=== PATIENT | male | born 1950 | race Caucasian/White ===

== ENCOUNTER → 2018-07-09 | Outpatient (CLI) | payer OTHER ==
[~2018-07-09] MED LIST: IOPAMIDOL (ISOVUE-300) 100 ML BTL ONE
== END ==
LOC: CIMAGING 08:20
PROVIDERS: ATTEND Urology
DX: N20.0 Calculus of kidney (principal); N40.0 Benign prostatic hyperplasia without lower urinary tract symptoms; E27.9 Disorder of adrenal gland, unspecified; K76.89 Other specified diseases of liver
CPT/HCPCS: 74178-PO; 82565-PO; Q9967